=== PATIENT | female | born 1975 | race African-American/Black ===

== ENCOUNTER 2021-07-24 13:04 | Outpatient (CLI) | payer BC | END 2021-07-24 13:05 | disposition home or self-care (01) | LOC: CSHMAMMO 13:04 | PROVIDERS: ATTEND Obstetrics & Gynecology | DX: N63.10 Unspecified lump in the right breast, unspecified quadrant (principal) | CPT/HCPCS: 77066; G0279 ==

== ENCOUNTER 2022-08-04 11:07 | Day surgery (SDC) | payer BC ==
[2022-07-30 13:20] VITALS: BMI 19.8
[2022-08-04] MEDS ORDERED: CeleCOXIB 100 MG CAP ONE ×2 (11:57→12:03)
[2022-08-04] MEDS ORDERED: Gabapentin 300 MG CAP ONE (11:57)
[2022-08-04] MEDS ORDERED: Famotidine/PF 20 mg/2ml Vial ONE (11:58)
[2022-08-04] MEDS ORDERED: Midazolam HCl 2 mg/2 ml Vial ONE (13:13)
[2022-08-04] MEDS ORDERED: Bupivacaine PF 0.5% 30 ML VIAL ONE (13:13)
[2022-08-04] MEDS ORDERED: EPINEPHrine 1 MG/ML AMP ONE (13:13)
[2022-08-04] MEDS ORDERED: Fentanyl 100 MCG/2 ML VIAL ONE ×3 (13:15→15:03)
[2022-08-04] MEDS ORDERED: PROPOFOL 20 ML ONE (13:15)
[2022-08-04] MEDS ORDERED: CEFAZOLIN 2 GM VIAL ONE (13:35)
[2022-08-04] MEDS ORDERED: PHENYLEPHRINE-NS 100 MCG/ML 10 ML SYRINGE ONE (13:49)
[2022-08-04] MEDS ORDERED: Glycopyrrolate 0.2 MG/ML 5 ML SYRINGE ONE (13:56)
[2022-08-04] MEDS ORDERED: Dexamethasone 20 MG/5 ML VIAL ONE (13:58)
[2022-08-04] MEDS ORDERED: Ondansetron PF 4 MG/2 ML Vial ONE (13:58)
[2022-08-04] MEDS ORDERED: ePHEDrine Sulfate 50 MG/10 ML VIAL ONE (14:02)
[2022-08-04] MEDS ORDERED: Ketorolac Tromethamine 30 MG/ML VIAL ONE (14:16)
[2022-08-04] MEDS ORDERED: SUGAMMADEX SODIUM 200 MG/2 ML VIAL ONE (14:30)
[2022-08-04] MEDS ORDERED: HYDROcodone/Acetaminophen 5/325 mg Tablet ONE (15:40)
== END 2022-08-04 17:20 | disposition home or self-care (01) ==
LOC: CSHSDC 11:07
PROVIDERS: ATTEND Obstetrics & Gynecology
PROC: 0UT24ZZ Resection of Bilateral Ovaries, Percutaneous Endoscopic Approach (ICD-10-PCS; principal; 2022-08-04)
PROC: 0UT74ZZ Resection of Bilateral Fallopian Tubes, Percutaneous Endoscopic Approach (ICD-10-PCS; principal; 2022-08-04)
DX: N94.89 Other specified conditions associated with female genital organs and menstrual cycle (principal); N70.11 Chronic salpingitis; K21.9 Gastro-esophageal reflux disease without esophagitis; Z79.899 Other long term (current) drug therapy; Z88.2 Allergy status to sulfonamides
CPT/HCPCS: 88305; J0171; J1100; J1885; J2250; J2405; J2704; J3010; S0020; S0028

== ENCOUNTER 2022-12-09 16:25 | Outpatient (CLI) | payer BC | END 2022-12-09 16:26 | disposition home or self-care (01) | LOC: CSHCP 16:25 | PROVIDERS: ATTEND Internal Medicine Critical Care Medicine | DX: R06.09 Other forms of dyspnea (principal) | CPT/HCPCS: 94060; 94726; 94729; 94760 ==